=== PATIENT | male | born 1945 | race Caucasian/White ===

== ENCOUNTER → 2017-11-04 | Outpatient (CLI) | payer OTHER ==
--- NOTE | 2017-11-04 11:55 | Diagnostic Imaging Report ---
INDICATION: Dysphagia. PROCEDURE: The procedure was performed in conjunction with a member of the department of speech pathology. Patient swallowed thin and thick barium and semisolid and solid foods mixed with barium paste. The study was recorded on videotape. FINDINGS: The oral phase of swallowing was unremarkable. The cricopharyngeal function and laryngeal elevation were normal. There is no evidence of penetration or aspiration. IMPRESSION: No evidence of penetration or aspiration. Please correlate with the formal speech pathology report. Dictated by: Dictated on workstation # [id number]
== END ==
LOC: RAD 09:28
PROVIDERS: ATTEND Otolaryngology Otolaryngology/Facial Plastic Surgery
DX: R13.10 Dysphagia, unspecified (principal)
CPT/HCPCS: 74230

== ENCOUNTER → 2018-03-13 | Outpatient (CLI) | payer OTHER ==
[~2018-03-13] MED LIST: BARIUM SUSPENSION 2.1% (VANILLA SILQ) 450 ML PO ONE; CATHETER FLUSH 10 ML SYR IV PRN; IOHEXOL 350 MG/ML 100 ML (OMNIPAQUE 350) VIAL IV ONE; NS 100 ML (IVPB) BAG IV ONE; RECEIVED CONTRAST (Hold Metformin) IV SCH
[2018-03-13] MEDS: CATHETER FLUSH 10 ML SYR IV PRN ×2 (10:16→10:30)
[2018-03-13 10:22] LABS: BUN/CREATININE RATIO 13; CREATININE SERUM 0.85 MG/DL (0.60-1.30); GFR ESTIMATED > 60
--- NOTE | 2018-03-13 11:51 | Diagnostic Imaging Report ---
PROCEDURE: CT abdomen and pelvis with contrast. TECHNIQUE: Multiple contiguous axial images were obtained through the abdomen and pelvis after administration of intravenous contrast. DATE: March 13, 2018. COMPARISON: [facility]UB of March 15, 2015. INDICATION: 72-year-old male, history of prostate cancer. Mid abdominal pain. FINDINGS: There is a 4 mm pleurally based right middle lobe pulmonary nodule on axial image 6. The additional visualized portions of the lung bases are clear. The heart is not enlarged. There is no identified pericardial effusion. The liver is normal in size and contour. There is no identified liver lesion. The main, right, and left portal veins are patent. The patient is status post cholecystectomy. There is no intrahepatic or extrahepatic bile duct dilation. The main pancreatic duct is not abnormally dilated. Unremarkable appearance of the pancreatic parenchyma. The spleen is normal in size. The adrenal glands are unremarkable. Unremarkable appearance of the renal parenchyma. The urinary collecting systems are not distended. There is no identified renal or ureteral stone. The prostate gland is enlarged and does indent on the posterior aspect of the urinary bladder. There is a round low-attenuation potential lesion in the right side of the prostate, best seen on delayed image 79, which measures 1.5 x 1.7 cm in size. This is nonspecific although potentially could relate to provided history of prostate cancer. There is no identified prominent focal urinary bladder wall thickening. There is an outpouching of the anterior and lower margin of the urinary bladder on axial image 73, likely relating to a diverticulum, with a small punctate area of calcification at this location on axial image 74 which may relate to a stone within the urinary bladder versus a focal calcification of the urinary bladder wall. There are post operative changes at the level of the gastroesophageal junction which may relate to a wrap type procedure. The intestinal tract is not distended. There is a moderate volume of stool throughout the colon. The appendix is not well seen. There are no secondary findings to suggest acute appendicitis. There is no free intraperitoneal air. There is no drainable fluid collection. There is no free pelvic fluid. There are atherosclerotic calcifications. There is no identified abnormally enlarged lymph node in the abdomen or pelvis which meets CT size criteria for adenopathy. There are multilevel degenerative changes of the spine. There is grade 1 anterolisthesis of L5 on S1 relating to facet degenerative changes. S1-S2 is labeled as having a hypoplastic disc space. IMPRESSION: 1. The prostate is enlarged and does indent on the posterior aspect of the urinary bladder. There is a nonspecific round area of low attenuation in the right side of the prostate measuring 15 x 17 mm in size which is entirely nonspecific although potentially could correlate with provided history of prostate cancer. 2. Small anterior urinary bladder diverticulum which does have an associated small calcification which may relate to a stone within the urinary bladder versus small focal calcification of the urinary bladder wall. No identified urinary bladder wall thickening. 3. No identified acute abnormality within the abdomen or pelvis. Dictated by: Dictated on workstation # [id number]
--- NOTE | 2018-03-13 14:36 | Diagnostic Imaging Report ---
INDICATION: Prostate cancer. TECHNIQUE: Whole body bone scan performed in the routine fashion with 26.6 mCi of technetium-99m MDP given intravenously. FINDINGS: There is physiologic uptake of the tracer throughout the skeleton. There are no abnormal foci of activity to suggest osseous metastatic disease. Both kidneys excrete the tracer. IMPRESSION: No scintigraphic evidence of osseous metastatic disease. Dictated by: Dictated on workstation # [id number]
== END ==
LOC: CARD 09:50
PROVIDERS: ATTEND Urology
DX: C61 Malignant neoplasm of prostate (principal); N32.3 Diverticulum of bladder
CPT/HCPCS: 36415; 74177; 78306; 82565; 84520

== ENCOUNTER 2018-04-21 12:46 | Outpatient (RCR) | payer OTHER | END 2018-07-20 | disposition home or self-care (01) | LOC: ONC 12:46 | PROVIDERS: ATTEND Radiology Radiation Oncology | DX: C61 Malignant neoplasm of prostate (principal) | CPT/HCPCS: 99204 ==

== ENCOUNTER 2018-09-05 14:29 | Outpatient (RCR) | payer OTHER ==
[2018-10-02] MEDS ORDERED: HYDR-3820 PO (10:17)
[2018-10-02] MEDS ORDERED: TRAM50TA2 PO (10:17)
[2018-10-02] MEDS ORDERED: AMLO10TA7 PO (10:17)
[2018-10-02] MEDS ORDERED: TAMS0.4C98 PO (10:17)
[2018-10-02] MEDS ORDERED: FINA5TAB6 PO (10:17)
[2018-10-02] MEDS ORDERED: MEGE20TA PO (10:17)
[2018-10-04] MEDS ORDERED: PHEN-640 PO (10:46)
[2018-10-04] MEDS ORDERED: CIPR-225 PO (10:46)
== END 2018-10-22 | disposition home or self-care (01) ==
LOC: ONC 14:29
PROVIDERS: ATTEND Radiology Radiation Oncology
DX: C61 Malignant neoplasm of prostate (principal)
CPT/HCPCS: 76873; 77331

== ENCOUNTER 2018-10-02 09:51 | Outpatient (CLI) | payer OTHER ==
[~2018-10-02] VITALS: Ht 165.1 cm; Wt 74.6 kg
[2018-10-02] MEDS ORDERED: TAMS0.4C98 PO (10:17)
[2018-10-02] MEDS ORDERED: MEGE20TA PO (10:17)
[2018-10-02] MEDS ORDERED: HYDR-3820 PO (10:17)
[2018-10-02] MEDS ORDERED: TRAM50TA2 PO (10:17)
[2018-10-02] MEDS ORDERED: FINA5TAB6 PO (10:17)
[2018-10-02] MEDS ORDERED: AMLO10TA7 PO (10:17)
[2018-10-02 10:19] VITALS: BP 140/88
== END 2018-10-02 15:20 | disposition home or self-care (01) ==
LOC: PREOP 09:51
PROVIDERS: ATTEND Urology
DX: Z01.818 Encounter for other preprocedural examination (principal)
CPT/HCPCS: 87081

== ENCOUNTER 2018-10-04 06:27 | Day surgery (SDC) | payer OTHER ==
[2018-10-04] VITALS (10 sets, daily range): BP systolic 158–180; BP diastolic 84–97
[~2018-10-04] VITALS: Ht 165.1 cm; Wt 74.6 kg
[~2018-10-04 06:27] MED LIST changes: +AMLO10TA7 PO; -BARIUM SUSPENSION 2.1% (VANILLA SILQ) 450 ML PO ONE; -CATHETER FLUSH 10 ML SYR IV PRN; +FINA5TAB6 PO; +HYDR-3820 PO; -IOHEXOL 350 MG/ML 100 ML (OMNIPAQUE 350) VIAL IV ONE; +MEGE20TA PO; -NS 100 ML (IVPB) BAG IV ONE; -RECEIVED CONTRAST (Hold Metformin) IV SCH; +TAMS0.4C98 PO; +TRAM50TA2 PO
--- OUTSIDE RECORDS SUMMARY | 2018-10-04 06:33 | XMS REPORT | Clinical Summary ---
Author Author [facility] Organization [facility] Address Unknown Phone Unavailable Care Team Providers Care Sports Nutritionist Name Role Phone Oliver Vega PCP Source Comments Some departments are not documenting in the electronic medical record. If you d o not see the information that you expected, contact Release of Information in [facility] [employer] Information Management department at [phone] for further assistan ce in locating additional records.[facility] Allergies No Known Allergies Medications End Date Status Medication Sig Dispensed Refills Start Date Active AMLODIPINE BESYLATE Take by 0 (AMLODIPINE PO) mouth. Active HYDROCODONE/ACETAMINOPHEN Take by 0 (LORCET (HYDROCODONE) PO) mouth. Active Problems Problem Noted Date H. pylori infection 10/29/2016 Swallowing difficulty 10/07/2016 Overview: Added automatically from request for surgery [id number] Pain of upper abdomen 10/07/2016 Social History Date Tobacco Use Types Packs/Day Years Used Former Smoker Smokeless Tobacco: Never Used Drinks/Week oz/Week Comments Alcohol Use Yes Sex Assigned at Date Recorded Not on file Industry Job Start Date Occupation Not on file Not on file Not on file Travel End Travel History Travel Start No recent travel history available. Last Filed Vital Signs Reading Time Taken Comments Vital Sign 153/79 10/21/2016 12:03 PM CDT Blood Pressure 70 10/21/2016 12:03 PM CDT Pulse 37 C (98.6 F) 10/21/2016 11:39 AM CDT Temperature 18 10/07/2016 3:20 PM CDT Respiratory Rate 100% 10/21/2016 12:03 PM CDT Oxygen Saturation - - Inhaled Oxygen Concentration 73 kg (161 lb) 10/21/2016 10:15 AM CDT Weight 165.1 cm (5' 5") 10/21/2016 10:15 AM CDT Height 26.79 10/21/2016 10:15 AM CDT Body Mass Index Plan of Treatment Health Maintenance Due Date Last Done Comments HEPATITIS C SCREENING 1945 PHYSICAL (COMPREHENSIVE) 1954 EXAM DTAP/TDAP VACCINES (1 - 1965 Tdap) COLORECTAL CANCER 1997 SCREENING SHINGLES RECOMBINANT 1997 VACCINE (1 of 2) ABDOMINAL AORTIC ANEURYSM 2012 SCREENING PNEUMONIA (PCV13/PPSV23) 2012 VACCINES (1 of 2 - PCV13) INFLUENZA VACCINE 12/05/2018 Results Not on filefrom Last 3 Months Insurance Type Payer Benefit Subscriber ID Effective Phone Address Plan / Dates Group Indemnity GENERIC COMMERCIAL GENERIC [id number] 2016-P COMMERCIAL resent Advance Directives Patient Career Placement Specialist Explanation Type Date Recorded Advance 10/21/2016 7:02 AM Directive/DPOA
[2018-10-04] MEDS ORDERED: LACTATED RINGERS 1,000 ML IV PRN (07:06)
--- NOTE | 2018-10-04 07:07 | Progress Note-Pre Operative ---
Pre-Operative Progress Note H&P Reviewed The H&P was reviewed, patient examined and no changes noted. Date Seen by Provider: Oct 04, 2018 Time Seen by Provider: 07:07 Date H&P Reviewed: Oct 04, 2018 Time H&P Reviewed: 07:07 Pre-Operative Diagnosis: CA PROSTATE ALEXANDRU VEE MD Oct 04, 2018 07:07
[2018-10-04] MEDS ORDERED: LEVOFLOXACIN 500 MG/100 ML IV 100 ML ONE (07:10)
[2018-10-04] MEDS ORDERED: SEVOFLURANE (ULTANE) 15 ML INHAL SOLN ONE (07:11)
[2018-10-04] MEDS ORDERED: BACITRACIN OINTMENT 28 GM TUBE ONE (07:11)
[2018-10-04] MEDS ORDERED: proPOfol 200 MG/20 ML (DIPRIVAN) VIAL IV ONE (07:11)
[2018-10-04] MEDS ORDERED: ONDANSETRON 4 MG/2 ML (SDV) Z0FRAN ONE (07:11)
[2018-10-04] MEDS ORDERED: LIDOCAINE PF 2% 5 ML (XYLOCAINE) VIAL ONE (07:11)
[2018-10-04] MEDS ORDERED: MIDAZOLAM 2 MG/2 ML (VERSED) VIAL ONE (07:12)
[2018-10-04] MEDS ORDERED: fentaNYL INJECTION 100 MCG/2 ML AMP ONE (07:12)
--- NOTE | 2018-10-04 07:14 | Progress Note-Post Operative ---
Post-Operative Progess Note Surgeon (s)/Charge Coordinator (s) Surgeon ALEXANDRU VEE MD Charge Coordinator: Ling QUEVEDO Pre-Operative Diagnosis CA PROSTATE Post-Operative Diagnosis SAME Procedure & Operative Findings Date of Procedure 10/04/18 Procedure Performed/Findings BRACHYTHERAPY, CYSTOGRAM, AND SPACE OAR Anesthesia Type GENERAL Estimated Blood Loss Estimated blood loss (mL): NEGLIGIBLE Specimens/Packing Specimens Removed NONE Packing: NONE ALEXANDRU VEE MD Oct 04, 2018 07:14
[2018-10-04] MEDS ORDERED: LEVOFLOXACIN 500 MG/100 ML IV 100 ML IV ONE (07:15)
--- NOTE | 2018-10-04 07:18 | Discharge Inst-Urology ---
Discharge Inst-Urology Reconcile Patient Problems Problems Reviewed?: Yes Discharge Medications New, Converted, or Re-newed RX: RX on Chart Patient Instructions/Follow Up Plan Please make appointment to been seen in office in 4 weeks. Instructions for balderrama to patient please Come to office Tuesday 9am to DC Balderrama Rest till Tuesday, then may resume work, no restrictions Showers, no bath Keep bowels soft and moving Increase oral fluids for 48 hours and then as needed. Diet as tolerated. If questions or concerns contact your physician Or seek help at emergency department. ALEXANDRU VEE MD Oct 04, 2018 07:18
[2018-10-04] MEDS ORDERED: CATHETER FLUSH 10 ML SYR IV PRN (07:30)
[2018-10-04] MEDS ORDERED: PHENYLEPHRINE 100 MCG/ML 10 ML (ANESTHESIA) SYR ONE (08:52)
[2018-10-04] MEDS ORDERED: ONDANSETRON 4 MG/2 ML (SDV) Z0FRAN IVP PRN (10:00)
[2018-10-04] MEDS ORDERED: HYDROmorphone 2 MG/ML VIAL (DILAUDID) IV ONE (10:00)
--- NOTE | 2018-10-04 10:08 | Diagnostic Imaging Report ---
Indication: Fluoroscopy for brachytherapy. Fluoroscopy was provided during prostate brachytherapy. 8 seconds of fluoroscopy was utilized. Impression: Fluoroscopy during prostate brachytherapy. Dictated by: Dictated on workstation # [id number]
[2018-10-04] MEDS ORDERED: DESFLURANE (SUPRANE) 15 ML INHAL SOLN ONE ×2 (10:12→10:14)
[2018-10-04] MEDS ORDERED: CIPR-225 PO (10:46)
[2018-10-04] MEDS ORDERED: PHEN-640 PO (10:46)
--- NOTE | 2018-10-04 14:07 | Anesthesia-General Post-Op ---
General Patient Condition Mental Status/LOC: Same as Preop Cardiovascular: Satisfactory Nausea/Vomiting: Absent Respiratory: Satisfactory Pain: Controlled Complications: Absent Post Op Complications Complications None Follow Up Care/Instructions Patient Instructions None needed. Anesthesia/Patient Condition Patient Condition Patient was seen after the procedure and he was doing well, no complaints, stable vital signs, no apparent adverse anesthesia problems. NIMO SINGH DO Oct 04, 2018 14:07
== END 2018-10-04 11:45 | disposition home or self-care (01) ==
LOC: SDC 06:27
PROVIDERS: ATTEND Urology
DX: C61 Malignant neoplasm of prostate (principal); I10 Essential (primary) hypertension; K21.9 Gastro-esophageal reflux disease without esophagitis; Z90.49 Acquired absence of other specified parts of digestive tract; Z79.891 Long term (current) use of opiate analgesic; Z79.899 Other long term (current) drug therapy; Z87.891 Personal history of nicotine dependence
CPT/HCPCS: 76965; 77290; 77318; 77332; 77370; 77470; 77778

== ENCOUNTER → 2018-11-01 | Outpatient (CLI) | payer OTHER ==
[~2018-11-01] MED LIST changes: +CIPR-225 PO; +PHEN-640 PO
[2018-11-01 16:08] LABS: HEMOGLOBIN 11.2 G/DL (13.3-17.7); MEAN PLATELET VOLUME 9.1 FL (7.4-10.4); RED CELL DISTRIBUTION WIDTH 12.9 % (10.0-14.5); WHITE BLOOD COUNT 7.5 10^3/uL (4.3-11.0)
[2018-11-01 16:35] LABS: ALANINE AMINOTRANSFERASE 17 U/L (0-55); ALBUMIN 3.9 GM/DL (3.2-4.5); ALKALINE PHOSPHATASE 85 U/L (40-136); BILIRUBIN,TOTAL 0.2 MG/DL (0.1-1.0); BUN/CREATININE RATIO 19; CALCIUM 9.2 MG/DL (8.5-10.1); CARBON DIOXIDE 23 MMOL/L (21-32); CHLORIDE 110 MMOL/L (98-107); CREATININE SERUM 1.04 MG/DL (0.60-1.30); GFR ESTIMATED > 60; GLUCOSE 78 MG/DL (70-105); POTASSIUM 3.6 MMOL/L (3.6-5.0); SODIUM 141 MMOL/L (135-145); TOTAL PROTEIN 6.9 GM/DL (6.4-8.2)
== END ==
LOC: LAB 15:50
PROVIDERS: ATTEND Urology
DX: C61 Malignant neoplasm of prostate (principal)
CPT/HCPCS: 36415; 80053; 84153; 85027

== ENCOUNTER 2019-01-01 09:25 | Outpatient (RCR) | payer OTHER | END 2019-01-30 | disposition home or self-care (01) | LOC: ONC 09:25 | PROVIDERS: ATTEND Radiology Radiation Oncology | DX: Z51.0 Encounter for antineoplastic radiation therapy (principal); C61 Malignant neoplasm of prostate | CPT/HCPCS: 77290; 77295; 77300; 77301; 77334; 77336; 77338; 77385 ==

== ENCOUNTER → 2019-03-28 | Outpatient (CLI) | payer OTHER ==
[~2019-03-28] MED LIST changes: -TAMS0.4C98 PO; +TMSL.4C PO; -TRAM50TA2 PO; +TRM50T PO
[2019-03-28 16:15] LABS: MEAN PLATELET VOLUME 8.9 FL (7.4-10.4); RED CELL DISTRIBUTION WIDTH 13.2 % (10.0-14.5); WHITE BLOOD COUNT 4.6 10^3/uL (4.3-11.0)
[2019-03-28 16:35] LABS: ALANINE AMINOTRANSFERASE 16 U/L (0-55); ALBUMIN 4.4 GM/DL (3.2-4.5); ALKALINE PHOSPHATASE 118 U/L (40-136); BILIRUBIN,TOTAL 0.4 MG/DL (0.1-1.0); BUN/CREATININE RATIO 15; CALCIUM 9.4 MG/DL (8.5-10.1); CARBON DIOXIDE 23 MMOL/L (21-32); CHLORIDE 106 MMOL/L (98-107); CREATININE SERUM 0.85 MG/DL (0.60-1.30); GFR ESTIMATED > 60; GLUCOSE 97 MG/DL (70-105); POTASSIUM 4.2 MMOL/L (3.6-5.0); SODIUM 139 MMOL/L (135-145); TOTAL PROTEIN 7.4 GM/DL (6.4-8.2)
== END ==
LOC: LAB 15:53
PROVIDERS: ATTEND Urology
DX: C61 Malignant neoplasm of prostate (principal)
CPT/HCPCS: 36415; 80053; 84153; 84403; 85027

== ENCOUNTER 2019-05-15 05:38 | Outpatient (CLI) | payer OTHER ==
[~2019-05-15] VITALS: Ht 167 cm; Wt 79.5 kg
[~2019-05-15 05:38] MED LIST changes: +ACHYD1T PO; -HYDR-3820 PO; -MEGE20TA PO; +MEGE20TA3 PO
== END 2019-05-15 13:37 | disposition home or self-care (01) ==
LOC: PREOP 05:38
PROVIDERS: ATTEND Surgery
DX: Z01.818 Encounter for other preprocedural examination (principal)

== ENCOUNTER → 2019-07-06 | Outpatient (CLI) | payer OTHER ==
[~2019-07-06] MED LIST changes: +PANT40TA2 PO
[2019-07-06 11:00] LABS: HEMOGLOBIN 13.9 G/DL (13.3-17.7); MEAN PLATELET VOLUME 9.6 FL (7.4-10.4); RED CELL DISTRIBUTION WIDTH 13.6 % (10.0-14.5)
[2019-07-06 11:24] LABS: ALANINE AMINOTRANSFERASE 20 U/L (0-55); ALKALINE PHOSPHATASE 104 U/L (40-136); BILIRUBIN,TOTAL 0.3 MG/DL (0.1-1.0); BUN/CREATININE RATIO 23; CALCIUM 9.2 MG/DL (8.5-10.1); CARBON DIOXIDE 25 MMOL/L (21-32); CHLORIDE 106 MMOL/L (98-107); CREATININE SERUM 0.79 MG/DL (0.60-1.30); GFR ESTIMATED > 60; GLUCOSE 112 MG/DL (70-105); POTASSIUM 3.9 MMOL/L (3.6-5.0); SODIUM 139 MMOL/L (135-145); TOTAL PROTEIN 6.8 GM/DL (6.4-8.2)
== END ==
LOC: LAB 10:47
PROVIDERS: ATTEND Urology
DX: C61 Malignant neoplasm of prostate (principal)
CPT/HCPCS: 36415; 80053; 84153; 84402; 84403; 85027

== ENCOUNTER 2019-07-27 09:21 | Outpatient (RCR) | payer OTHER ==
[~2019-07-27] VITALS: Ht 165 cm; Wt 79.5 kg
[2019-08-02] MEDS ORDERED: HYDR-4226 PO (09:45)
[2019-08-02] MEDS ORDERED: DOCU-143 PO (09:45)
== END 2019-07-27 14:51 | disposition home or self-care (01) ==
LOC: PREOP 09:21
PROVIDERS: ATTEND Surgery
DX: Z01.818 Encounter for other preprocedural examination (principal); Z11.59 Encounter for screening for other viral diseases; K43.2 Incisional hernia without obstruction or gangrene
CPT/HCPCS: 87635

== ENCOUNTER 2019-08-02 06:44 | Day surgery (SDC) | payer OTHER ==
[~2019-08-02] VITALS: Ht 165 cm; Wt 79.5 kg
[2019-08-02] VITALS (10 sets, daily range): BP systolic 98–174; BP diastolic 64–97
[2019-08-02] MEDS ORDERED: ceFAZolin 2 GM IV Premixed 50 ML IV ONE (07:00)
[2019-08-02] MEDS ORDERED: CATHETER FLUSH 10 ML SYR IV PRN (07:15)
[2019-08-02 07:25] LABS: BASOPHILS % (AUTO) 0 % (0-10); EOSINOPHILS % (AUTO) 0 % (0-10); HEMATOCRIT 40 % (40-54); HEMOGLOBIN 13.3 G/DL (13.3-17.7); LYMPHOCYTES % (AUTO) 15 % (12-44); MEAN CORPUSCULAR HEMOGLOBIN 29 PG (25-34); MEAN CORPUSCULAR HGB CONC 34 G/DL (32-36); MEAN CORPUSCULAR VOLUME 87 FL (80-99); MEAN PLATELET VOLUME 9.4 FL (7.4-10.4); MONOCYTES # (AUTO) 0.3 X 10^3 (0.0-1.0); MONOCYTES % (AUTO) 4 % (0-12); NEUTROPHILS # (AUTO) 5.6 X 10^3 (1.8-7.8); NEUTROPHILS % (AUTO) 81 % (42-75); PLATELET COUNT 262 10^3/uL (130-400); RED CELL DISTRIBUTION WIDTH 13.7 % (10.0-14.5)
[2019-08-02] MEDS: LACTATED RINGERS 1,000 ML IV PRN ×2 (07:36→10:31)
[2019-08-02] MEDS ORDERED: proPOfol 200 MG/20 ML (DIPRIVAN) VIAL IV ONE (07:51)
[2019-08-02] MEDS ORDERED: LIDOCAINE PF 2% 5 ML (XYLOCAINE) VIAL ONE (07:51)
[2019-08-02] MEDS ORDERED: SEVOFLURANE (ULTANE) 15 ML INHAL SOLN ONE ×4 (07:51→10:35)
[2019-08-02] MEDS ORDERED: ROCURONIUM 10 MG/ML 5 ML SYRINGE IV ONE (07:51)
[2019-08-02] MEDS ORDERED: fentaNYL INJECTION 100 MCG/2 ML AMP ONE (07:52)
[2019-08-02] MEDS ORDERED: MIDAZOLAM 2 MG/2 ML (VERSED) VIAL ONE (07:54)
[2019-08-02] MEDS ORDERED: BUP/EPI 0.5% 1:200,000 (SENSORCAINE) 30 ML VIAL ONE (08:10)
[2019-08-02] MEDS ORDERED: ONDANSETRON 4 MG/2 ML (SDV) Z0FRAN ONE (09:00)
[2019-08-02] MEDS ORDERED: DEXAMETHASONE 10 MG/ML (DECADRON) 1 ML VIAL ONE (09:00)
--- NOTE | 2019-08-02 09:44 | Progress Note-Post Operative ---
Post-Operative Progess Note Surgeon (s)/Director Building (s) Surgeon CHEMA CONLEY DO Director Building: Dr. Alba to assist in retraction dissection and closure Pre-Operative Diagnosis INCISIONAL HERNIA Post-Operative Diagnosis incarcerated incisional herrnia Procedure & Operative Findings Date of Procedure 08/02/19 Procedure Performed/Findings PROCEDURE: Laparoscopic incarcerated incisional hernia repair with mesh. COMPLICATIONS: None. INDICATIONS: The patient is a 74, male with an incisional hernia, which has continued to increase in size and cause discomfort. The patient was explained the risk and benefits of the procedure and wished to proceed with the procedure. Consent was signed on the chart. DESCRIPTION OF PROCEDURE: The patient was taken into the operating suite, prepped and draped in sterile fashion. Surgical pause was performed. Local anesthetic was infiltrated in left upper quadrant. A 15 blade scalpel was used to make a small skin incision. Cautery was used to dissect down to the fascia, which was then scored and divided the muscle, went through the posterior sheath and a balloon trocar was inserted into the abdomen. The abdomen was then insufflated. Incisional hernia with incarcerated fat present. A 5 mm trocar was placed in the right lower quadrant and a 5 mm trocar was placed in left lower quadrant. Fat that was incarcerated through defect was grasped and retracted down and hook cautery used to reduce and remove contents. Echo Ventralight mesh was then inserted in the abdomen grabbed through the stab incision. The balloon was inflated on the mesh. Circumferential tacks were placed with a SecureStrap Tacker. The balloon was then removed and inner crown was created as well. The mesh was tacked with pressure being decreased. The 12 mm fascial defect was then closed using 3-0 and 0 Vicryl. The abdomen was then desufflated,the trocars were removed. The skin was then closed using 4-0 Monocryl in a running subcuticular fashion. The abdomen was washed and dried and Skin Affix was placed over the incisions. The patient tolerated procedure well without any complications. She was taken to recovery room in stable condition. Anesthesia Type general Estimated Blood Loss Estimated blood loss (mL): minimal Specimens/Packing Specimens Removed hernia contents CHEMA CONLEY DO August 02, 2019 09:44
[2019-08-02] MEDS ORDERED: HYDR-4226 PO (09:45)
[2019-08-02] MEDS ORDERED: DOCU-143 PO (09:45)
--- NOTE | 2019-08-02 09:46 | Discharge Inst-Simple/Standard ---
Discharge Inst-Standard Discharge Medications New, Converted or Re-Newed RX: RX on Chart Patient Instructions/Follow Up Plan of Care/Instructions/FU: 2 weeks [place] Activity as Tolerated: No Discharge Diet: Regular Diet Other Inst to Patient Follow up Appt: Make appointment for 2 week. Instructions: No lifting greater than 10 pounds. No strenuous activity. May shower in 24 hours, no tub bath or soaking. Use incentive spirometer at home as directed. No Smoking Skin/Wound Care: You have special glue over your incision that will fall off on it's own. Symptoms to Report: Appetite Changes, Extremity Discoloration, Numbness/Tingling, Swelling Increased, Bleeding Excessive, Eyesight Changes, Pain Increased, Urine Color Change, Constipation(Persistent), Fever over 101 degree F, Pain/Pressure in chest, Urinating Difficulty, Cough Up/Vomit Blood, Heart Beat Irreg/Pounding, Pain/Pressure in jaw, Vaginal Bleeding Increase, Cramps in feet or legs, Lightheadedness, Pain/Pressure in shoulder, Diarrhea(Persistent), Memory Changes Suddenly, Questions/Concerns, Weight gain consecutive days, Dizziness/Fainting, Nausea/Vomiting, Shortness of Breath, Weight gain over 2 pounds If questions or concerns contact your physician Or seek help at emergency department. CHEMA CONLEY DO August 02, 2019 09:46
--- NOTE | 2019-08-02 09:58 | Anesthesia-General Post-Op ---
General Patient Condition Mental Status/LOC: Same as Preop Cardiovascular: Satisfactory Nausea/Vomiting: Absent Respiratory: Satisfactory Pain: Controlled Complications: Absent Post Op Complications Complications None Follow Up Care/Instructions Patient Instructions None needed. Anesthesia/Patient Condition Patient Condition Patient is doing well, no complaints, stable vital signs, no apparent adverse anesthesia problems. No complications reported per nursing. TAVARES BLAIR CRNA August 02, 2019 09:58
[2019-08-02] MEDS ORDERED: fentaNYL INJECTION 100 MCG/2 ML AMP IVP ONE (10:00)
[2019-08-02] MEDS ORDERED: ONDANSETRON 4 MG/2 ML (SDV) Z0FRAN IVP PRN (10:00)
[2019-08-02] MEDS ORDERED: PROMETHAZINE INJ 25 MG/ML (PHENERGAN) AMP IVP ONE (10:00)
[2019-08-02] MEDS ORDERED: MEPERIDINE (DEMEROL) INJ 50 MG/ML IVP ONE (10:00)
[2019-08-02] MEDS ORDERED: HYDROmorphone 2 MG/ML VIAL (DILAUDID) IV ONE (10:00)
[2019-08-02] MEDS: morphine INJ 10 MG/ML 1ML (SYR OR VIAL) IVP ONE ×2 (10:10→10:12)
[2019-08-02] MEDS ORDERED: HYDROcodone/APAP 5 MG/325 MG (LORTAB) TAB PO ONE ×2 (10:15→11:45)
== END 2019-08-02 12:00 | disposition home or self-care (01) ==
LOC: SDC 06:44
PROVIDERS: ATTEND Surgery
DX: K43.0 Incisional hernia with obstruction, without gangrene (principal); K29.50 Unspecified chronic gastritis without bleeding; K63.5 Polyp of colon; D12.6 Benign neoplasm of colon, unspecified; K21.9 Gastro-esophageal reflux disease without esophagitis; I25.10 Atherosclerotic heart disease of native coronary artery without angina pectoris; Z79.899 Other long term (current) drug therapy; Z87.891 Personal history of nicotine dependence
CPT/HCPCS: 36415; 85025; 87081; 94664

== ENCOUNTER 2019-11-27 05:39 | Outpatient (CLI) | payer OTHER ==
[~2019-11-27] VITALS: Ht 165 cm; Wt 81.8 kg
[~2019-11-27 05:39] MED LIST changes: +DOCU-143 PO; +HYDR-4226 PO
[2019-11-27] MEDS ORDERED: LOSA100T57 PO (14:40)
[2019-11-27] MEDS ORDERED: LORA10TA7 PO (14:40)
== END 2019-11-27 14:42 | disposition home or self-care (01) ==
LOC: PREOP 05:39
PROVIDERS: ATTEND Surgery
DX: Z01.818 Encounter for other preprocedural examination (principal)

== ENCOUNTER 2019-12-04 08:26 | Day surgery (SDC) | payer OTHER ==
[~2019-12-04] VITALS: Ht 165 cm; Wt 81.8 kg
[~2019-12-04 08:26] MED LIST changes: +LORA10TA7 PO; +LOSA100T57 PO
[2019-12-04 08:30] VITALS: BP 170/84
[2019-12-04] MEDS ORDERED: LACTATED RINGERS 1,000 ML IV ONE (08:31)
[2019-12-04] MEDS ORDERED: LACTATED RINGERS 1,000 ML IV STA (08:31)
[2019-12-04] MEDS ORDERED: HYDR-3820 PO (09:00)
--- NOTE | 2019-12-04 09:46 | Progress Note-Pre Operative ---
Pre-Operative Progress Note H&P Reviewed The H&P was reviewed, patient examined and no changes noted. Date Seen by Provider: Dec 04, 2019 Time Seen by Provider: :46 Date H&P Reviewed: Dec 04, 2019 Time H&P Reviewed: :46 Pre-Operative Diagnosis: bright red blood per rectum, hx polyps CHEMA CONLEY DO Dec 04, 2019 09:46
[2019-12-04] MEDS ORDERED: MIDAZOLAM 2 MG/2 ML (VERSED) VIAL ONE (10:33)
[2019-12-04] MEDS ORDERED: PROPOFOL INJECTION 50 ML IV ONE (10:33)
[2019-12-04] MEDS ORDERED: ESMOLOL 100 MG/10 ML (BREVIBLOC) VIAL ONE (10:41)
[2019-12-04] MEDS ORDERED: proPOfol 200 MG/20 ML (DIPRIVAN) VIAL IV ONE (10:56)
[2019-12-04 11:20] VITALS: BP 122/67
[2019-12-04 11:25] VITALS: BP 149/72
--- NOTE | 2019-12-04 11:25 | Progress Note-Post Operative ---
Post-Operative Progess Note Surgeon (s)/Help Desk Agent (s) Surgeon CHEMA CNOLEY DO Help Desk Agent: na Pre-Operative Diagnosis bright red blood per rectum, hx polyps Post-Operative Diagnosis Colon polyp x2 Proctitis Diverticulitis Procedure & Operative Findings Date of Procedure 12/04/19 Procedure Performed/Findings colonoscopy with hot biopsy polypectomy x2 cold biopsies of rectal inflammation Anesthesia Type per PLASTIC FABRICATOR Estimated Blood Loss Estimated blood loss (mL): scant Specimens/Packing Specimens Removed ascending colon polyp transverse colon polyp random rectal cold biopsies CHEMA CONLEY DO Dec 04, 2019 11:25
[2019-12-04 11:30] VITALS: BP 150/75
--- NOTE | 2019-12-04 11:34 | Discharge Inst-Simple/Standard ---
Discharge Inst-Standard Patient Instructions/Follow Up Plan of Care/Instructions/FU: 2 weeks [place] Activity as Tolerated: Yes Discharge Diet: Regular Diet CHEMA CONLEY DO Dec 04, 2019 11:33
[2019-12-04 11:35] VITALS: BP 150/75
[2019-12-04 12:05] VITALS: BP 150/75
--- NOTE | 2019-12-04 13:22 | Anesthesia-General Post-Op ---
MAC Patient Condition Mental Status/LOC: Same as Preop Cardiovascular: Satisfactory Nausea/Vomiting: Absent Respiratory: Satisfactory Pain: Controlled Complications: Absent Post Op Complications Complications None Follow Up Care/Instructions Patient Instructions None needed. Anesthesiology Discharge Order Discharge Order Patient is doing well, no complaints, stable vital signs, no apparent adverse anesthesia problems. No complications reported per nursing. CHELLY OLEARY CRNA Dec 04, 2019 13:21
--- NOTE | 2019-12-04 13:49 | OPERATIVE REPORT ---
DATE OF SERVICE: 12/04/2019 PREOPERATIVE DIAGNOSES: Bright red blood per rectum, history of polyps. POSTOPERATIVE DIAGNOSES: Colon polyps x2, proctitis, diverticulosis. PROCEDURE: Colonoscopy with hot biopsy polypectomy x2 and cold biopsies of rectal inflammation. SURGEON: Chema Melara DO ANESTHESIA: Per [employer] COORDINATOR. ESTIMATED BLOOD LOSS: Scant. COMPLICATIONS: None. INDICATIONS: The patient is a 74-year-old male with bright red blood per rectum and history of polyps. He understands risks and benefits of procedure and wished to proceed with procedure. Consent was signed in the chart. DESCRIPTION OF PROCEDURE: The patient was taken to the endoscopy suite, placed in left lateral recumbent position. Timeout was performed. Digital rectal exam was performed, internal hemorrhoids present. No palpable polyps, masses or ulcerations. Some rectal thickening slightly. Scope was inserted and noticed inflammatory changes of the rectum. The scope was then advanced all the way to cecum with minimal difficulty. Prep was adequate with irrigation and suction. There are no polyps, masses or ulcerations within the cecum. In the ascending colon, a small polyp was present, which hot biopsy polypectomy was performed. Scope was then continuously retracted back in the transverse colon, there was a small polyp, which hot biopsy polypectomy was performed. Scope was then continuously retracted back. There were no other polyps, masses or ulcerations within the transverse, descending and sigmoid colon. A minimal amount of diverticulosis was present. Once in the rectum, scope was retroflexed noting no other pathology except for noting the rectal inflammation. Multiple cold biopsies of the rectum were obtained. Scope was then slowly retracted back until completely removed. The patient tolerated procedure well without any complications. He was taken to recovery room in stable condition. RECOMMENDATIONS: The patient will follow up on biopsies. He will need repeat colonoscopy in 5 years due to polyps. Maybe earlier due to the rectal inflammation biopsies depending upon pathology. Further recommendations pending pathology. Job ID: [id number] DocumentID: [id number] Dictated Date: 12/04/2019 11:41:26 Ap Processor Date: 12/04/2019 13:49:07 Dictated By: CHEMA MELARA DO
== END 2019-12-04 12:10 | disposition home or self-care (01) ==
LOC: ENDO 08:26
PROVIDERS: ATTEND Surgery
DX: D12.2 Benign neoplasm of ascending colon (principal); D12.3 Benign neoplasm of transverse colon; K62.89 Other specified diseases of anus and rectum; K57.30 Diverticulosis of large intestine without perforation or abscess without bleeding; I10 Essential (primary) hypertension; M54.9 Dorsalgia, unspecified; G89.29 Other chronic pain; K44.9 Diaphragmatic hernia without obstruction or gangrene; M06.9 Rheumatoid arthritis, unspecified; E66.9 Obesity, unspecified; Z68.30 Body mass index [BMI] 30.0-30.9, adult; Z85.46 Personal history of malignant neoplasm of prostate; Z87.891 Personal history of nicotine dependence; Z86.010 Personal history of colon polyps; Z79.899 Other long term (current) drug therapy
CPT/HCPCS: 88305

== ENCOUNTER → 2019-12-26 | Outpatient (CLI) | payer OTHER ==
[~2019-12-26] MED LIST changes: +HYDR-3820 PO
[2019-12-26 15:04] LABS: MEAN PLATELET VOLUME 10.2 fL (9.0-12.2); WHITE BLOOD COUNT 6.1 10^3/uL (4.3-11.0)
[2019-12-26 15:22] LABS: ALANINE AMINOTRANSFERASE 17 U/L (0-55); ALBUMIN 3.8 GM/DL (3.2-4.5); ALKALINE PHOSPHATASE 90 U/L (40-136); BILIRUBIN,TOTAL 0.3 MG/DL (0.1-1.0); BUN/CREATININE RATIO 23; CALCIUM 8.8 MG/DL (8.5-10.1); CARBON DIOXIDE 23 MMOL/L (21-32); CHLORIDE 107 MMOL/L (98-107); CREATININE SERUM 0.75 MG/DL (0.60-1.30); GFR ESTIMATED > 60; GLUCOSE 97 MG/DL (70-105); POTASSIUM 4.3 MMOL/L (3.6-5.0); SODIUM 139 MMOL/L (135-145); TOTAL PROTEIN 6.6 GM/DL (6.4-8.2)
== END ==
LOC: LAB 14:34
PROVIDERS: ATTEND Urology
DX: C61 Malignant neoplasm of prostate (principal)
CPT/HCPCS: 36415; 80053; 84153; 84402; 84403; 85027